=== PATIENT | male | born 1945 | race Caucasian/White ===

== ENCOUNTER 2018-05-26 06:28 | Day surgery (SDC) | payer OTHER, MEDICARE ==
[~2018-05-26] VITALS: Ht 180.3 cm; Wt 106.5 kg
[~2018-05-26 06:28] MED LIST: ASPIR 8181 M1 PO; CARAFATE1 GM PO; DAYPRO600 MG PO; LIPOFEN50 MG PO; LOPRESSOR25 MG PO
[2018-05-26 07:06] VITALS: BP 141/76
[2018-05-26] MEDS ORDERED: DOCUSATE SODIU100 MG PO (11:51)
[2018-05-26] MEDS ORDERED: BACTRIM,SEPT1 TABLET PO (11:51)
[2018-05-26] MEDS ORDERED: PERCOCET 5/31 TABLET PO (11:51)
[2018-05-26 13:42] VITALS: BP 141/75
[2018-05-26 15:35] VITALS: BP 134/71
[2018-05-26 19:43] VITALS: BP 135/70
[2018-05-27 00:38] VITALS: BP 115/63
[2018-05-27 03:30] VITALS: BP 110/58
[2018-05-27 08:11] VITALS: BP 130/63
== END 2018-05-27 08:57 | disposition home or self-care (01) ==
LOC: SDC 06:28 → 2SOUTH 11:43 → 2EAST 11:43 → 2SOUTH 11:43 → ENRESERV 11:46 → SDC 12:03 → ENRESERV 12:11 → 2EAST 13:25
PROC: 0THD0LZ Insertion of Artificial Sphincter into Urethra, Open Approach (ICD-10-PCS; principal; 2018-05-26)
DX: N39.3 Stress incontinence (female) (male) (principal); Z85.46 Personal history of malignant neoplasm of prostate; Z68.41 Body mass index [BMI] 40.0-44.9, adult; I25.10 Atherosclerotic heart disease of native coronary artery without angina pectoris; Z95.5 Presence of coronary angioplasty implant and graft; I25.2 Old myocardial infarction; E78.5 Hyperlipidemia, unspecified; I10 Essential (primary) hypertension; H40.9 Unspecified glaucoma; Z96.698 Presence of other orthopedic joint implants; Z79.82 Long term (current) use of aspirin
CPT/HCPCS: C1815; G0378; J0131; J0690; J1100; J1170; J1580; J1644; J2250; J2405; J2710; J3010; J7120; J7643